=== PATIENT | male | born 1945 ===

== ENCOUNTER 2024-01-07 13:13 | Day surgery (SDC) | payer OTHER ==
[~2024-01-07] VITALS: Ht 175.3 cm; Wt 74.0 kg
[~2024-01-07 13:13] MED LIST: ASPI325; ATEN25; Balanced Salt Epinephrine Irrigation Solution 500 mL IR SCH; LISI10; Lidocaine HCl/Pf 1% 5 ML VIAL XX SCH; Moxifloxacin HCL 0.5 MG/0.1 ML 0.4MLSYR LEFTEYE SCH; NS 500 ML IV ONE; PHENYLEPHRINE\\TROPICAMIDE\\TETRACAINE OPHTHALMIC DILATING SOLN LEFTEYE PRN; Povidone-Iodine 450 DROP/30 ML Solution LEFTEYE SCH; SIMV40
[2024-01-07] MEDS ORDERED: ATOR20 PO (13:57)
[2024-01-07] MEDS ORDERED: OMEP20ER PO (13:58)
[2024-01-07] MEDS ORDERED: NS 500 ML IV ONE (14:07)
--- NOTE | 2024-01-07 14:07 | NUR ---
01/07/24 1407 Elizabeth Noel 1354 PLEDGET 1355
[2024-01-07] MEDS ORDERED: Midazolam HCl 1MG / ML 2ML Vial ONE (14:29)
[2024-01-07] MEDS ORDERED: FentaNYL Citrate 50 MCG/ML 2 ML Injection ONE (14:29)
[2024-01-07 15:34] VITALS: BP 131/72
== END 2024-01-07 16:03 | disposition home or self-care (01) ==
LOC: ORSCSDS 13:13
PROVIDERS: Student in an Organized Health Care Education/Training Program
PROC: 08RK3JZ Replacement of Left Lens with Synthetic Substitute, Percutaneous Approach (ICD-10-PCS; principal; 2024-01-07 14:30)
DX: H25.813 Combined forms of age-related cataract, bilateral (principal); H52.202 Unspecified astigmatism, left eye; I10 Essential (primary) hypertension; E78.5 Hyperlipidemia, unspecified; K21.9 Gastro-esophageal reflux disease without esophagitis; Z79.82 Long term (current) use of aspirin; Z79.899 Other long term (current) drug therapy; F17.210 Nicotine dependence, cigarettes, uncomplicated
CPT/HCPCS: J2250; J3010; J7040; V2632

== ENCOUNTER 2024-01-14 13:20 | Day surgery (SDC) | payer OTHER ==
[~2024-01-14] VITALS: Ht 175.3 cm; Wt 74.5 kg
[~2024-01-14 13:20] MED LIST changes: +ATOR20 PO; +FentaNYL Citrate 50 MCG/ML 2 ML Injection ONE; +Midazolam HCl 1MG / ML 2ML Vial ONE; -Moxifloxacin HCL 0.5 MG/0.1 ML 0.4MLSYR LEFTEYE SCH; +Moxifloxacin HCL 0.5 MG/0.1 ML 0.4MLSYR RIGHTEYE SCH; +OMEP20ER PO; -PHENYLEPHRINE\\TROPICAMIDE\\TETRACAINE OPHTHALMIC DILATING SOLN LEFTEYE PRN; +PHENYLEPHRINE\\TROPICAMIDE\\TETRACAINE OPHTHALMIC DILATING SOLN RIGHTEYE PRN; -Povidone-Iodine 450 DROP/30 ML Solution LEFTEYE SCH; +Povidone-Iodine 450 DROP/30 ML Solution RIGHTEYE SCH
[2024-01-14] MEDS ORDERED: NS 1,000 ML IV ONE (13:52)
[2024-01-14 15:12] VITALS: BP 139/73
--- NOTE | 2024-01-14 15:13 | NUR ---
01/14/24 1513 Hardik Goddard FLUID END TIME IS 1446, NOT 1426. UNABLE TO EDIT.
== END 2024-01-14 15:03 | disposition home or self-care (01) ==
LOC: ORSCSDS 13:20
PROVIDERS: Student in an Organized Health Care Education/Training Program
PROC: 08RJ3JZ Replacement of Right Lens with Synthetic Substitute, Percutaneous Approach (ICD-10-PCS; principal; 2024-01-14 14:30)
DX: H25.811 Combined forms of age-related cataract, right eye (principal); H52.201 Unspecified astigmatism, right eye; Z96.1 Presence of intraocular lens; H53.003 Unspecified amblyopia, bilateral; I10 Essential (primary) hypertension; K21.9 Gastro-esophageal reflux disease without esophagitis; I25.10 Atherosclerotic heart disease of native coronary artery without angina pectoris; Z79.82 Long term (current) use of aspirin; Z79.899 Other long term (current) drug therapy; F17.210 Nicotine dependence, cigarettes, uncomplicated
CPT/HCPCS: J2250; J3010; J7040; V2632